=== PATIENT | male | born 2000 | race Hispanic/Latino ===

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

== ENCOUNTER 2019-02-11 13:48 | Emergency (ER) | payer OTHER, SELFPAY ==
[~2019-02-11] VITALS: Ht 172.7 cm; Wt 79.5 kg
--- NOTE | 2019-02-11 16:45 | REP ---
Chest x-ray: Two views. History: Chest pain. No comparison study. Findings: There is a moderate dextroconvex scoliotic curve in the thoracic spine. No other bony abnormality is seen. Lungs are well inflated and clear. Pleural angles are sharp. Heart size is normal. Pulmonary vasculature is not increased. No significant bony abnormality is seen. Impression: Moderate dextroconvex thoracic scoliosis. Otherwise negative chest x-ray. Electronically Signed by Dmitry Castaneda MD 02/11/2019 04:37 P
[2019-02-11 17:16] LABS: BASO % 0.2 % (0.0-1.0); EOS # 0.5 10^3/uL (0.0-0.50); EOS % 10.1 % (0.0-3.0); HEMATOCRIT 48.5 % (42.0-52.0); HEMOGLOBIN 17.4 g/dl (13.5-17.5); LYMPH # 1.4 10^3/uL (1.5-6.5); LYMPH % 30.1 % (24.0-44.0); MEAN CORPUSCULAR HEMOGLOBIN 30.6 pg (27.0-33.0); MEAN CORPUSCULAR HGB CONC 35.9 g/dl (32.0-36.5); MEAN CORPUSCULAR VOLUME 85.2 fl (80.0-96.0); MONO # 0.5 10^3/uL (0.0-0.8); MONO % 10.8 % (0.0-5.0); NEUTROPHILS # 2.2 10^3/uL (1.8-7.7); NEUTROPHILS % 48.6 % (36.0-66.0); PLATELET COUNT, AUTOMATED 224 10^3/uL (150-450); RED BLOOD COUNT 5.69 10^6/uL (4.30-6.10); WHITE BLOOD COUNT 4.6 10^3/uL (4.0-10.0)
[2019-02-11 17:42] LABS: BLOOD UREA NITROGEN 16 MG/DL (7-18); CALCIUM LEVEL 8.8 MG/DL (8.5-10.1); CARBON DIOXIDE LEVEL 30 MEQ/L (21-32); CHLORIDE LEVEL 105 MEQ/L (98-107); CK-MB VALUE MASS < 1.0 NG/ML (<3.6); CPK CREATINE PHOSPHOKINASE 239 U/L (39-308); CREATININE FOR GFR 0.94 MG/DL (0.70-1.30); FREE T4 1.05 NG/DL (0.78-1.33); GLUCOSE, FASTING 107 MG/DL (70-100); MB/CK RELATIVE INDEX 0.42 (< OR =4); POTASSIUM SERUM 3.8 MEQ/L (3.5-5.1); SODIUM LEVEL 140 MEQ/L (136-145); TROPONIN I < 0.02 NG/ML (< 0.10)
[2019-02-11 18:00] VITALS: BP 130/55
--- NOTE | 2019-02-12 05:44 | ECGEPIP ---
[facility] - ED Test Date: 2019-02-11 Pat Name: LARISA SAENZ Department: Room: - Gender: Male [employer] Dis[employer]: CHERYLE : 2000 Requested By: FEDERICO GONZALEZ PA-C Order Number: [id number] Reading MD: Varun Zaragoza Measurements Intervals [place] Rate: 61 P: 63 NC: 134 QRS: 82 QRSD: 94 T: 45 QT: 376 QTc: 381 Interpretive Statements SINUS RHYTHM WITH SINUS ARRHYTHMIA BENIGN EARLY REPOLARIZATION NO PRIORS FOR COMPARISON Electronically Signed on 02-12-2019 5:44:30 EDT by Varun Zaragoza
== END 2019-02-11 18:00 | disposition home or self-care (01) ==
LOC: M ED 13:48
DX: R07.89 Other chest pain (principal); M41.9 Scoliosis, unspecified

== ENCOUNTER 2019-06-15 11:52 | Emergency (ER) | payer MEDICAID, OTHER ==
[~2019-06-15] VITALS: Ht 172.7 cm; Wt 81.8 kg
[2019-06-15] MEDS ORDERED: LIDOCAINE 5% (LIDODERM) PATCH TD ONE (17:15)
[2019-06-15 17:32] LABS: BASO % 0.6 % (0.0-1.0); EOS # 0.3 10^3/uL (0.0-0.5); EOS % 6.1 % (0.0-3.0); HEMOGLOBIN 17.9 g/dl (13.5-17.5); LYMPH # 1.7 10^3/uL (1.5-5.0); LYMPH % 32.4 % (24.0-44.0); MEAN CORPUSCULAR HEMOGLOBIN 30.3 pg (27.0-33.0); MEAN CORPUSCULAR HGB CONC 35.1 g/dl (32.0-36.5); MEAN CORPUSCULAR VOLUME 86.3 fl (80.0-96.0); MONO # 0.4 10^3/uL (0.0-0.8); MONO % 7.5 % (0.0-5.0); NEUTROPHILS # 2.8 10^3/uL (1.5-8.5); NEUTROPHILS % 53.2 % (36.0-66.0); PLATELET COUNT, AUTOMATED 218 10^3/uL (150-450); RED BLOOD COUNT 5.91 10^6/uL (4.30-6.10); WHITE BLOOD COUNT 5.2 10^3/uL (4.0-10.0)
[2019-06-15] MEDS ORDERED: LIDO5DIS41 TD (18:19)
[2019-06-15 18:27] VITALS: BP 128/58
--- NOTE | 2019-06-15 20:21 | REP ---
KUB ABDOMEN AND PELVIS: KUB film of the abdomen and pelvis was performed. Bowel gas pattern is normal with no obstruction. No abnormal calcifications are seen in the abdomen and pelvis. There is moderate curvature of the left thoracolumbar spine. Convex to the left IMPRESSION: Spinal curvature. No evidence of bowel obstruction and no definite abdominal calcifications. Electronically Signed by Reid Manuel MD 06/16/2019 03:41 P
--- NOTE | 2019-06-15 20:29 | REP ---
SCOLIOSIS SERIES: AP views of the spine are performed. There is S-shaped curvature of the spine. Thoracic spine is curved convex to the right with the apex of the curvature at about the T8-9 level. Degree of curvature when measured between the superior endplate of T7 to the superior endplate of T12 is approximately 44 degrees. There is curvature of the lumbar spine convex to the left with the apex of the curvature at about L2-3 level. The degree of curvature when measured between the superior endplate of T12 to the superior endplate of L4 is about 41 degrees. Electronically Signed by Reid Manuel MD 06/16/2019 03:42 P
[2019-06-15] MEDS ORDERED: **NOTE PATIENT COMMENT** MISC XX SCH (21:00)
--- NOTE | 2019-06-18 10:34 | ED PDOC ---
Post-Departure Follow-Up ncog faxed formal report of spine for fu Ame Villafana MD Jun 18, 2019 10:34
== END 2019-06-15 18:29 | disposition home or self-care (01) ==
LOC: M ED 11:52
DX: M41.9 Scoliosis, unspecified (principal); Z87.442 Personal history of urinary calculi; F17.200 Nicotine dependence, unspecified, uncomplicated; F12.10 Cannabis abuse, uncomplicated